=== PATIENT | male | born 1985 | race Caucasian/White ===

== ENCOUNTER 2021-03-02 14:01 | Outpatient (CLI) | payer SELFPAY ==
--- NOTE | 2021-03-02 15:41 | VDLE_ITS ---
Reason For Study: SWELLING Procedure LEFT This is a venous duplex using B-mode, color GSV is normal. flow and spectral Doppler. CFV is compressible, spontaneous, phasic, Exam performed in department. competent, and demonstrates normal Technically difficult due to atrophy of LE augmentation. vessels. FV is compressible, spontaneous, phasic, A preliminary report was called and/or faxed competent and demonstrates normal to DR JORDAN BALDERAS. augmentation. POP V is compressible, spontaneous, phasic, competent and demonstrates normal augmentation. T/P Trunk is compressible. PTV is compressible. LT PerV is compressible. VL/Venous Duplex US, Unilateral Interpretation Summary Deep veins of the left lower extremity are patent and compressible segmentally. There is no evidence of left lower extremity deep vein thrombosis. Valvular competence appears intac t within the proximal deep venous system on the left . The left great saphenous vein appears patent a nd compressible segmentally. Ordering Physician: Jordan Balderas Referring Physician: Jordan Balderas Performed By: Maia Rahman, RDCS, RVT
== END 2021-03-02 23:59 | disposition short-term general hospital (02) ==
PROVIDERS: PCP Physician Assistant; Referring Provider Physician Assistant; Visit Provider Physician Assistant
DX: R22.42 Localized swelling, mass and lump, left lower limb (principal)
CPT/HCPCS: 93971

== ENCOUNTER 2023-06-11 23:25 | Inpatient (IN) | payer OTHER, SELFPAY ==
[2023-06-11 23:26] VITALS: BP 109/67; PULSE 120; RESP 16; TEMP 37.7
[2023-06-11 23:34] VITALS: BP 109/67; PULSE 120; RESP 18; TEMP 37.7
[2023-06-11 23:37] VITALS: BMI 17.8
[2023-06-12] VITALS (18 sets, daily range): BP systolic 89–119; BP diastolic 49–82; PULSE 95–125; RESP 15–18; TEMP 36.5–39.6; O2SAT 95–100; BMI 16.6
--- NOTE | 2023-06-12 00:29 | CT_ITS ---
EXAM: CT ABDOMEN AND PELVIS WITHOUT INTRAVENOUS CONTRAST CLINICAL INDICATION: flank pain flank pain TECHNIQUE: Helically acquired images were obtained of the abdomen and pelvis without intravenous contrast. This CT exam was performed using one or more of the following dose reduction techniques: automated exposure control, adjustment of the mA and/or kV according to patient size, and/or use of iterative reconstruction technique. RADIATION DOSE: CTDIvol = 6.04 mGy, DLP = 320.15 mGy-cm COMPARISON: No relevant prior studies available. FINDINGS: LOWER THORAX: As seen on axial image 34, there is a 4.5 mm solid left lower lobe lung nodule. Fleischner Society Guidelines suggest no follow-up is necessary for patients with a low or high risk of malignancy. No cardiomegaly. No significant pericardial effusion. ABDOMEN: LIVER: Unremarkable. Homogeneous. GALLBLADDER AND BILE DUCTS: Unremarkable. No calcified gallstones. No gallbladder distention or wall edema. No intra- or extrahepatic biliary ductal dilation. PANCREAS: Unremarkable. No focal cystic mass. SPLEEN: The spleen is mildly enlarged. ADRENALS: Unremarkable. No nodules. KIDNEYS AND URETERS: There is mild hydronephrosis of the right kidney and there is right hydroureter. There is no demonstrated urinary calculus. There are multiple hypodense space occupying lesions in the peripheral cortex of the left kidney, with attenuation of greater than 90 HU. These are likely represent hyperdense cysts. No further evaluation is necessary. Normal renal size and position. STOMACH AND BOWEL: There is a small broad-based right inguinal hernia which contains small bowel. There is a small broad-based left inguinal hernia which contains a segment of sigmoid colon. There is no associated bowel obstruction or strangulation. No focal inflammatory change. PELVIS: APPENDIX: The appendix is not identified. There is no visible evidence for acute appendicitis. BLADDER: Urinary bladder contained 560 mL at the time of this exam. REPRODUCTIVE: Unremarkable as visualized. No mass. ABDOMEN and PELVIS: INTRAPERITONEAL SPACE: Unremarkable. No ascites or other fluid collection. No free air. BONES/JOINTS: There are postsurgical changes in the upper lumbar spine and visualized lower thoracic spine. There is deformity of the right femoral head, consistent with an old healed fracture and/or prior avascular necrosis. 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 There are calcifications surrounding the right hip joint which probably represent synovial osteochondromas. No suspicious lytic or blastic abnormality. SOFT TISSUES: See above. VASCULATURE: Unremarkable. Abdominal aorta is non-dilated. LYMPH NODES: Unremarkable. No enlarged lymph nodes. CT/Abdomen/Pelvis without Cont IMPRESSION: 1. Mild hydronephrosis of the right kidney and right hydroureter without demonstrated urinary calculus. Potential etiologies for this finding would include recent passage of a right ureteral calculus, pyelonephritis, vesicoureteral reflux, or distal right ureteral obstruction of indeterminate etiology. 2. Small bilateral inguinal hernias containing bowel. No associated bowel obstruction or strangulation. 3. Mild splenomegaly. 4. Chronic orthopedic abnormalities. Electronically Signed: Flex Barraza MD at 2:41 EDT Reading Location ID and State: [facility] / [place] , Service support ,
--- NOTE | 2023-06-12 00:43 | EDS_ITS ---
HPI History of Present Illness Chief Complaint: Flank Pain Informant: patient and spouse/S.O. 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 Self caths. Reports fever for the past week this evening Tmax 106 Temp oral been using Tylenol last dose 10 PM less than 3 hours ago. She has had UTI in the past managed at home. No cough. Vomiting x 1 today. No current nausea. States feels swelling in his right flank region. PFSH PFSH Medical History (Updated 06/12/23 @ 07:[address] Tonny Washington DO) Paralysis Home Medications NK 06/12/23 [History Last Taken Unknown] Allergy/AdvReac Type Severity Reaction Status Date / Time No Known Allergies Allergy Verified 06/11/23 23:26 Family History (Updated 06/12/23 @ 03:[address] Bola Hill MD) Other Heart disease Surgical History (Updated 06/12/23 @ 03:[address] Bola Hill MD) Status post spinal surgery Social History Smoking Status: Never smoker ROS ROS ED Constitutional Constitutional ED: Reports fever(s); Denies chills or sweats Eyes Eyes: Denies change in vision ENT ENT ED: Denies dysphagia or sore throat Cardiovascular Cardiovascular: Denies chest pain, leg edema, palpitations or racing heartbeat Respiratory/Chest Respiratory/Chest: Denies cough, dyspnea or dyspnea on exertion Gastrointestinal Gastrointestinal: Reports vomiting; Denies abdominal pain, diarrhea or nausea Genitourinary Genitourinary ED: Denies dysuria, hematuria or urinary frequency Musculoskeletal Musculoskeletal: Reports back pain; Denies extremity pain or neck pain Integumentary Denies rash or wounds Neurologic Neurologic: Denies headache(s), paresthesias or weakness EXAM Physical Exam Const Vital Signs: 06/11/23 23:34 06/11/23 23:26 06/12/23 00:07 Temperature 99.9 F H 99.9 F H 99.4 F H Temperature Source Oral Temporal Oral Pulse Rate 120 H 120 H 105 H Respiratory Rate 18 16 18 Blood Pressure 109/67 109/67 104/67 Blood Pressure Mean 81 81 79 Pulse Ox 98 Oxygen Delivery Method Room Air 06/12/23 02:00 06/12/23 03:00 Temperature 98.8 F 99.5 F H Temperature Source Temporal Temporal Pulse Rate 112 H 117 H Respiratory Rate 18 18 Blood Pressure 110/63 119/82 H Blood Pressure Mean 78 94 Pulse Ox 99 99 Oxygen Delivery Method Room Air Room Air Positive well nourished and well developed General Appearance ED: well developed and NAD HEENT Reports moist mucous membranes normocephalic and atraumatic Eyes PERRL, EOMs intact bilaterally and conjunctivae normal General Eye ED: Yes normal appearance of both eyes Neck no lymphadenopathy and supple General: Negative for tenderness Chest Wall Chest: Negative for tenderness Resp normal respiratory effort and normal air movement Effort and Inspection: symmetric chest movement; Negative for respiratory distress Cardio regular rhythm and no murmurs Rate: tachycardic Peripheral Pulses: pulses 2+ throughout GI normal to inspection, nondistended, normoactive bowel sounds and non-tender Palpation: Negative for guarding or rebound tenderness present Back/Spine no CVA tenderness and no thoracic nor lumbar tenderness Back/Spine Narrative: No rash in the flank region. Extremity Extremity Narrative: No movement of lower extremities: Pulses are intact distally. General Extremety ED: Negative for edema or tenderness General Extremity: Negative for edema Neuro oriented x3 and no sensory deficits noted Sensorium / Orientation: awake and alert Skin no rashes or lesions noted and no wounds MDM MDM MDM Narrative Medical decision making narrative: Interventions / MDM: Differential diagnosis: Urinary tract infection, fever Diagnosis considered but do not suspect: Kidney stone however CT negative. My EKG interpretation: N/A Imaging independently reviewed and interpreted by myself: CT scan abdomen pelvis: Right-sided hydronephrosis, no stone noted. Distended bladder. External documents reviewed: N/A Test considered but not ordered:N/A ED course: Temp 99.9 on arrival pulse 120 on arrival. He is nontoxic. Patient self cath with able to give a specimen from cath in the room. Sepsis labs were ordered, flank CT ordered due to reported right flank swelling. 0255: White count returned at 14 and normal kidney function lactate is 1.1. Urine having leukocytes and white cells however not significant culture pending. COVID, flu, RSV negative. Self cath therefore high risk for infection. Concerns for complicated UTI. Rocephin IV started. CT scan notes right-sided hydronephrosis with no obstructive stone. Distended bladder. He will self cath at this point. He has had fever for the past week that is worsened, complicated UTI. Will discuss with hospitalist service for admission. I discussed with hospitalist, Dr. Hill for admission. Re-evaluation: stable Disposition discussed with patient/family/significant other: Patient and significant other Case discussed with consulting clinician: Hospitalist This note was generated with [employer] dictation software. It may contain incorrect words, spelling, and punctuation that were not noted in checking the note before signing. Lab Data Attestation: I reviewed the patient's lab results. Labs: Laboratory Results - last 24 hr 06/12/23 06/12/23 00:50 01:18 WBC 14.6 H RBC 4.34 L Hgb 12.7 L Hct 36.9 L MCV 85.0 MCH 29.3 MCHC 34.4 RDW Std Deviation 36.8 RDW Coeff of Danni 11.9 Plt Count 153 MPV 8.5 Immature Gran % (Auto) 0.900 Neut % (Auto) 85.9 H Lymph % (Auto) 3.3 L [place] % (Auto) 9.1 Eos % (Auto) 0.3 Baso % (Auto) 0.5 Absolute Neuts (auto) 12.5 H Absolute Lymphs (auto) 0.48 L Nucleated RBC % 0 PT Cancelled INR Cancelled APTT Cancelled Sodium 132 L Potassium 3.5 Chloride 100 Carbon Dioxide 27.0 Anion Gap 5 BUN 10 Creatinine 0.80 Estim Creat Clear Calc 105.54 Est GFR (MDRD) Af Amer 139 Est GFR (MDRD) Non-Af 115 BUN/Creatinine Ratio 12.5 Glucose 156 H Lactic Acid 1.1 Calcium 10.6 H Total Bilirubin 0.80 AST 14 L ALT 21 Alkaline Phosphatase 72 Total Protein 7.0 Albumin 3.3 Globulin 3.7 Albumin/Globulin Ratio 0.9 Urine Color Yellow Urine Clarity Clear Urine pH 6.5 Ur Specific [place] 1.010 Urine Protein 15 H Urine Glucose (UA) Normal Urine Ketones 5 H Urine Occult Blood 10 H Urine Nitrite Negative Urine Bilirubin Negative Urine Urobilinogen Normal Ur Leukocyte Esterase 100 H Urine RBC 5-10 SEEN Urine WBC 10-25 SEEN Ur Squamous Epith Cells 5-10 SEEN Urine Bacteria 0 SEEN Urine Mucus 0 SEEN Radiography Diagnostic Testing: Clinical Impression(s) from Imaging Studies Abdomen/Pelvis CT 06/12/23 00:29 IMPRESSION: 1. Mild hydronephrosis of the right kidney and right hydroureter without demonstrated urinary calculus. Potential etiologies for this finding would include recent passage of a right ureteral calculus, pyelonephritis, vesicoureteral reflux, or distal right ureteral obstruction of indeterminate etiology. 2. Small bilateral inguinal hernias containing bowel. No associated bowel obstruction or strangulation. 3. Mild splenomegaly. 4. Chronic orthopedic abnormalities. Electronically Signed: Flex Barraza MD at 2:41 EDT Reading Location ID and State: [facility] / [place] , Service support , Discharge Plan Dx/Rx/DC Orders Clinical Impression: Fever, Chronic paraplegia, Complicated UTI (urinary tract infection) Disposition Disposition: Acute Care Hospital [facility] Discharge Date/Time: 06/12/23 04:15
[2023-06-12 01:13] LABS: Absolute Lymphocyte Count 0.48 X10^3/uL (0.83-4.51); Absolute Neutrophil Count 12.5 X10^3/uL (2.0-7.7); Basophil# 0.07 X10^3/uL; Basophil% 0.5 % (0-1); Eosinophil# 0.04 X10^3/uL; Eosinophils% 0.3 % (0-5); Hematocrit 36.9 % (40-54); Hemoglobin 12.7 g/dL (13.0-16.5); Lymphocyte # 0.48 X10^3/ul (0.83-4.51); Lymphocyte % 3.3 % (19-41); Mean Corp Hgb Conc 34.4 g/dL (32-36); Mean Corpuscular Hgb 29.3 pg (27.0-32.0); Mean Platelet Vol. 8.5 fl (6.2-12.0); Monocyte# 1.33 X10^3/uL; Monocyte% 9.1 % (0-10); NRBC Flagged by Analyzer 0 % (0-5); Neutrophil # 12.53 X10^3/uL (2.7-7.7); Neutrophil % 85.9 % (47-70); POSITIVE DIFFERENTIAL YES; Platelet Count 153 K/mm3 (150-450); RBC Distribution Width CV 11.9 % (11.6-14.6); RBC Distribution Width SD 36.8 fl (35.1-43.9); Red Blood Count 4.34 M/mm3 (4.6-6.2); White Blood Count 14.6 K/mm3 (4.4-11.0)
[2023-06-12] MEDS: 0.9% Normal Saline (500mL Bag) 500 ML 1000 ML IV (01:22)
[2023-06-12 01:29] LABS: Bacteria 0 SEEN /hpf (None Seen); Mucous, Urine 0 SEEN /hpf (<or=2+)
[2023-06-12 01:40] LABS: ALB/GLOB Ratio 0.9 RATIO (0.9-2.4); AST(SGOT) 14 U/L (15-37); Alanine Aminotransfer ALT/SGPT 21 U/L (16-61); Albumin, Serum 3.3 g/dL (3.2-5.0); Alkaline Phosphatase 72 U/L (45-117); Anion Gap 5 (5-15); BUN 10 mg/dL (7-18); BUN/Creat Ratio 12.5 RATIO (10-20); Calcium,Total 10.6 mg/dL (8.5-10.1); Chloride 100 mmol/L (98-107); EST Glomerular Filtration Rate 115 mL/min (>60); Est Glom Filt Rate - Afr Amer 139 mL/min (>60); Estimated Creatinine Clearance 105.54 ml/min; Globulin 3.7 g/dL (2.2-4.2); Glucose 156 mg/dL (74-106); Potassium 3.5 mmol/L (3.5-5.1); Sodium Level 132 mmol/L (136-145)
[2023-06-12 01:41] LABS: Lactic Acid 1.1 mmol/L (0.4-1.9)
[2023-06-12 01:55] LABS: Color, Urine Yellow (Yellow); Glucose, Dipstick Normal (Normal); Ketone-Dipstick 5 mg/dl (Negative); Leukocyte Esterase-Dipstick 100 /ul (Negative); Nitrite-Dipstick Negative (Negative); Occult Blood-Urine 10 /ul (Negative); Protein-Dipstick 15 mg/dl (Negative); Urine Bilirubin Dipstick Negative (Negative); Urine Clarity Clear (Clear); Urine Urobilinogen Normal (Normal); Urine pH 6.5 (5.0 - 8.0)
[2023-06-12 02:09] LABS: Red Blood Cells-Urine 5-10 SEEN /hpf (0-5); Squamous Epithelial Cells - UA 5-10 SEEN /hpf (0-5); White Blood Cells 10-25 SEEN /hpf (0-5)
[2023-06-12] MEDS: Ceftriaxone 1 GM/50 ML BAG IV (03:24)
[2023-06-12] MEDS: Ondansetron 4 MG/2 ML Vial IV ×2 (03:31→13:50)
--- NOTE | 2023-06-12 03:36 | PCM.HP.STD ---
HPI - General General Date of Admission: 06/12/23 HPI Narrative JO ANN OCAMPO, is a 37 M who presents to the hospital with flank pain and fever for the last week. He has a history of being a paraplegic from a horse accident at the age of 15 where he crushed his T10-T12 vertebra. Because of this he straight caths several times a day. CT of his abdomen in the ER demonstrates right hydronephrosis but no obvious stone. I discussed with him that we do not have any urology coverage as we can but he would prefer to stay. Based on his leukocytosis as well as his tachycardia he is septic by SIRS criteria. And he received a dose of Rocephin in the ER as well as IV fluids. [facility] Medical History (Updated 06/12/23 @ 03:[address] Bola Hill MD) Paralysis Home Medications NK 06/12/23 [History Last Taken Unknown] Allergy/AdvReac Type Severity Reaction Status Date / Time No Known Allergies Allergy Verified 06/11/23 23:26 Family History (Updated 06/12/23 @ 03:[address] Bola Hill MD) Other Heart disease Surgical History (Updated 06/12/23 @ 03:[address] Bola Hill MD) Status post spinal surgery Social History Smoking Status: Never smoker ROS Constitutional Constitutional: Reports chills and fever(s); Denies fatigue or malaise Eyes Eyes: Denies blurry vision ENT HEENT: Denies headache(s) or nasal discharge Cardiovascular Cardiovascular: Denies chest pain, dyspnea on exertion or syncope Respiratory/Chest Respiratory/Chest: Denies cough, shortness of breath at rest or shortness of breath with exertion Gastrointestinal Gastrointestinal: Reports abdominal pain, nausea and vomiting; Denies constipation or diarrhea Genitourinary Genitourinary: Denies dysuria Neurologic Neurologic: Denies focal weakness, numbness or tremor(s) Psychiatric Psychiatric: Denies anxiety or depression Vital Signs Vital Signs Vital Signs: 06/11/23 23:34 06/11/23 23:26 06/12/23 00:07 Temperature 99.9 F H 99.9 F H 99.4 F H Temperature Source Oral Temporal Oral Pulse Rate 120 H 120 H 105 H Respiratory Rate 18 16 18 Blood Pressure 109/67 109/67 104/67 Blood Pressure Mean 81 81 79 Pulse Ox 98 Oxygen Delivery Method Room Air 06/12/23 02:00 06/12/23 03:00 06/12/23 03:33 Temperature 98.8 F 99.5 F H 99.5 F H Temperature Source Temporal Temporal Pulse Rate 112 H 117 H 123 H Respiratory Rate 18 18 18 Blood Pressure 110/63 119/82 H 119/82 H Blood Pressure Mean 78 94 94 Pulse Ox 99 99 98 Oxygen Delivery Method Room Air Room Air Weight Weight: 131 lb 6.328 oz Body Mass Index (BMI) 17.8 Physical Exam Narrative General: Alert, Oriented x3, Cooperative, No apparent distress HEENT: Atraumatic, PERRLA, EOMI, Normocephalic Oral: Moist Mucosa Neck: Supple, No JVD Lungs: Tachycardic, Normal air movement, No rhonchi, No wheeze, No rales Cardiovascular: Tachycardic, Regular Rhythm, Normal S1, Normal S2, No murmurs Abdomen: Soft, Non Tender, Non-Distended, No Hepato-splenomegaly Extremities: No edema, Capillary Refill Less than 3 Seconds Skin: No rashes, No breakdown Musculoskeletal: No Tenderness to Palpation of Joints or Extremities Neurological: No focal neurological deficits, Motor Exam 5/5 strength throughout, Sensory exam intact to light touch and pain Psych/Mental Status: Normal Affect, Appropriate Results Lab / Micro Data 06/12/23 00:50 06/12/23 00:50 Labs: Laboratory Results - last 24 hr 06/12/23 00:50: WBC 14.6 H, RBC 4.34 L, Hgb 12.7 L, Hct 36.9 L, MCV 85.0, MCH 29.3, MCHC 34.4, RDW Std Deviation 36.8, RDW Coeff of Danni 11.9, Plt Count 153, MPV 8.5, Immature Gran % (Auto) 0.900, Neut % (Auto) 85.9 H, Lymph % (Auto) 3.3 L, [place] % (Auto) 9.1, Eos % (Auto) 0.3, Baso % (Auto) 0.5, Absolute Neuts (auto) 12.5 H, Absolute Lymphs (auto) 0.48 L, Nucleated RBC % 0, Sodium 132 L, Potassium 3.5, Chloride 100, Carbon Dioxide 27.0, Anion Gap 5, BUN 10, Creatinine 0.80, Estim Creat Clear Calc 105.54, Est GFR (MDRD) Af Amer 139, Est GFR (MDRD) Non-Af 115, BUN/Creatinine Ratio 12.5, Glucose 156 H, Lactic Acid 1.1, Calcium 10.6 H, Total Bilirubin 0.80, AST 14 L, ALT 21, Alkaline Phosphatase 72, Total Protein 7.0, Albumin 3.3, Globulin 3.7, Albumin/Globulin Ratio 0.9 06/12/23 01:18: Urine Color Yellow, Urine Clarity Clear, Urine pH 6.5, Ur Specific [place] 1.010, Urine Protein 15 H, Urine Glucose (UA) Normal, Urine Ketones 5 H, Urine Occult Blood 10 H, Urine Nitrite Negative, Urine Bilirubin Negative, Urine Urobilinogen Normal, Ur Leukocyte Esterase 100 H, Urine RBC 5-10 SEEN, Urine WBC 10-25 SEEN, Ur Squamous Epith Cells 5-10 SEEN, Urine Bacteria 0 SEEN, Urine Mucus 0 SEEN Micro: Microbiology 06/12/23 01:23 Mucosa - Nose SARS-CoV-2, Influenza & RSV (PCR) - Final Imaging Radiology Impression Abdomen/Pelvis CT 06/12/23 00:29 IMPRESSION: 1. Mild hydronephrosis of the right kidney and right hydroureter without demonstrated urinary calculus. Potential etiologies for this finding would include recent passage of a right ureteral calculus, pyelonephritis, vesicoureteral reflux, or distal right ureteral obstruction of indeterminate etiology. 2. Small bilateral inguinal hernias containing bowel. No associated bowel obstruction or strangulation. 3. Mild splenomegaly. 4. Chronic orthopedic abnormalities. Electronically Signed: Flex Barraza MD at 2:41 EDT , Assessment & Plan Assessment/Plan (1) Sepsis: (2) UTI (urinary tract infection): PLAN: Plan 1. Sepsis secondary to UTI in the setting of having to straight cath for paraplegia ? Continue with IV fluids ? Continue with Rocephin ? Blood and urine cultures are pending ? Will place [place] since he has to straight cath after his paraplegia ? Continue with Tylenol given his continued fevers ? Urology should be available on Tuesday for consult if necessary, it was offered him to be transferred to another institution which he declined ? Given his sepsis will complete sepsis fluids DVT: Lovenox 76 minutes was spent on direct patient care, including documentation as well as chart review and collaboration with colleagues Charges/Coding Visit Charges Inpatient E&M: 44398 Init Hosp L3
[2023-06-12] MEDS: 0.9% Normal Saline (1000mL) 1,000 ML 100 ML IV (05:11)
[2023-06-12] MEDS: Acetaminophen 325 MG Tablet 650 MG PO ×3 (05:40→18:10)
[2023-06-12] MEDS: 0.9% Normal Saline (1000mL) 1,000 ML 999 ML IV ×4 (05:45→12:58)
[2023-06-12 06:48] LABS: Absolute Lymphocyte Count 0.48 X10^3/uL (0.83-4.51); Absolute Neutrophil Count 9.4 X10^3/uL (2.0-7.7); Basophil# 0.03 X10^3/uL; Basophil% 0.3 % (0-1); Hematocrit 32.2 % (40-54); Hemoglobin 11.1 g/dL (13.0-16.5); Lymphocyte # 0.48 X10^3/ul (0.83-4.51); Lymphocyte % 4.3 % (19-41); Mean Corp Hgb Conc 34.5 g/dL (32-36); Mean Corpuscular Hgb 29.5 pg (27.0-32.0); Mean Corpuscular Volume 85.6 fL (80-94); Mean Platelet Vol. 8.7 fl (6.2-12.0); Monocyte% 10.7 % (0-10); NRBC Flagged by Analyzer 0 % (0-5); Neutrophil # 9.42 X10^3/uL (2.7-7.7); Neutrophil % 83.9 % (47-70); POSITIVE DIFFERENTIAL YES; Platelet Count 140 K/mm3 (150-450); RBC Distribution Width SD 37.4 fl (35.1-43.9); Red Blood Count 3.76 M/mm3 (4.6-6.2); White Blood Count 11.2 K/mm3 (4.4-11.0)
[2023-06-12 07:04] LABS: Anion Gap 5 (5-15); BUN 9 mg/dL (7-18); BUN/Creat Ratio 12.8 RATIO (10-20); Calcium,Total 9.6 mg/dL (8.5-10.1); Chloride 104 mmol/L (98-107); EST Glomerular Filtration Rate 133 mL/min (>60); Est Glom Filt Rate - Afr Amer 160 mL/min (>60); Estimated Creatinine Clearance 112.73 ml/min; Glucose 132 mg/dL (74-106); Potassium 3.6 mmol/L (3.5-5.1); Sodium Level 134 mmol/L (136-145)
[2023-06-12] MEDS: Enoxaparin 40 MG/0.4 ML Syringe SC (07:56)
--- NOTE | 2023-06-12 14:24 | PCM.HOSP.N ---
Hospitalist Note Patient was seen and examined today, I talked with his who was in the room at the time of my exam. Patient spiked a temperature this afternoon on 103, I have decided to broaden his antibiotic coverage and I stopped his Rocephin and placed him on Zosyn. Patient's IV fluid was bumped up slightly and he was given some fluid boluses today. Urine and blood cultures are pending at this time, labs will be obtained tomorrow morning
[2023-06-12] MEDS: Piperacil/Tazobactam 3.375 GM in 0.9% Normal Saline (50mL MB+) 50 ML IV ×2 (15:50→22:02)
[2023-06-12] MEDS: 0.9% Normal Saline (1000mL) 1,000 ML 125 ML IV ×2 (15:53→23:40)
[2023-06-13] MEDS: Acetaminophen 325 MG Tablet 650 MG PO ×3 (00:11→15:16)
[2023-06-13 00:54] VITALS: TEMP 37.2
[2023-06-13 04:33] VITALS: BP 104/61; PULSE 82; RESP 16; TEMP 36.8; O2SAT 99
[2023-06-13] MEDS: Piperacil/Tazobactam 3.375 GM in 0.9% Normal Saline (50mL MB+) 50 ML IV ×3 (04:37→21:45)
[2023-06-13] MEDS: 0.9% Normal Saline (1000mL) 1,000 ML 125 ML IV ×3 (06:36→23:01)
[2023-06-13 06:39] LABS: Absolute Lymphocyte Count 1.01 X10^3/uL (0.83-4.51); Basophil# 0.01 X10^3/uL; Basophil% 0.1 % (0-1); Eosinophil# 0.01 X10^3/uL; Eosinophils% 0.1 % (0-5); Hematocrit 30.3 % (40-54); Hemoglobin 10.3 g/dL (13.0-16.5); Lymphocyte # 1.01 X10^3/ul (0.83-4.51); Lymphocyte % 12.5 % (19-41); Mean Corpuscular Hgb 29.7 pg (27.0-32.0); Mean Corpuscular Volume 87.3 fL (80-94); Mean Platelet Vol. 8.9 fl (6.2-12.0); Monocyte# 1.03 X10^3/uL; Monocyte% 12.7 % (0-10); NRBC Flagged by Analyzer 0 % (0-5); Neutrophil # 6.01 X10^3/uL (2.7-7.7); Neutrophil % 74.2 % (47-70); Platelet Count 126 K/mm3 (150-450); RBC Distribution Width CV 12.6 % (11.6-14.6); RBC Distribution Width SD 40.3 fl (35.1-43.9); Red Blood Count 3.47 M/mm3 (4.6-6.2); White Blood Count 8.1 K/mm3 (4.4-11.0)
[2023-06-13 07:16] LABS: ALB/GLOB Ratio 0.8 RATIO (0.9-2.4); AST(SGOT) 17 U/L (15-37); Alanine Aminotransfer ALT/SGPT 21 U/L (16-61); Albumin, Serum 2.3 g/dL (3.2-5.0); Alkaline Phosphatase 55 U/L (45-117); Anion Gap 4 (5-15); BUN 6 mg/dL (7-18); BUN/Creat Ratio 9.5 RATIO (10-20); Calcium,Total 9.3 mg/dL (8.5-10.1); Chloride 113 mmol/L (98-107); Creatinine, Serum 0.63 mg/dL (0.70-1.30); EST Glomerular Filtration Rate 150 mL/min (>60); Est Glom Filt Rate - Afr Amer 182 mL/min (>60); Estimated Creatinine Clearance 125.25 ml/min; Glucose 98 mg/dL (74-106); Potassium 3.6 mmol/L (3.5-5.1); Protein, Total 5.3 g/dL (6.4-8.2); Sodium Level 140 mmol/L (136-145)
[2023-06-13 08:28] VITALS: BP 104/62; PULSE 75; RESP 18; TEMP 37; O2SAT 100
[2023-06-13] MEDS: Enoxaparin 40 MG/0.4 ML Syringe SC (10:11)
--- NOTE | 2023-06-13 13:02 | CASEMGMT ---
LUIS DEGAR Assessment Face to Face with patient for initial transition planning/care coordination assessment. LUIS EDGAR introduced self and role at [facility], pt voices understanding. Pt is A&Ox4 and is resting comfortably in bed and is calm. Pt at bedside. Care providers, pharmacy, and demographics verified. Admitting dx: Sepsis from UTI PCP: Jordan Beck Specialists: Denies Preferred Pharmacy: [facility] Insurance: [employer] Prescription Benefit: Denies LNOK: Fiordaliza Mannakiko (W) Living Arrangements: Pt lives with his in a single story home with a BM and 3 steps to enter with a HR. ADLs/IADLs: Pt is a paraplegic. Pt helps the pt. Transportation: Family and neighbors DME: Pt mainly uses a W/C. Pt states that when he is feeling strong and healthy that he is able to use crutches at times. Pt straight caths himself at home. Leg braces. Shower chair and GB. BP Cuff. Stethoscope. HHC/SNF: Denies history or needs Pt?s goal: Home with Plan: Pt denies the need for HHC, OP therapy, or SNF at this time. Pt states that he wishes to DC home with the help of his and states feeling safe doing so. CM to follow for safe DC from [facility]. Josselyn Zayas RN, CM
[2023-06-13 15:01] VITALS: BP 107/70; PULSE 107; RESP 20; TEMP 38.6; O2SAT 97
--- NOTE | 2023-06-13 16:02 | PCM.PN.HOSP ---
Reason for Visit Reason for Visit: Diagnoses Sepsis, unspecified organism (06/12/23) Urinary tract infection, site not specified (06/12/23) Subjective Subjective Patient was seen and examined today, he appears to look better today, his white count is normal, he is afebrile. Patient's urine culture did not grow out any organism, I have elected to obtain a chest x-ray to make sure the patient does not have a pneumonia. I talked with urology by phone today, they examined him his images of his CAT scan of his abdomen and pelvis, they felt that the changes of the right hydronephrosis was due to pyelonephritis or reflux, they did not feel was necessary to see the patient in the hospital, the patient could follow-up as an outpatient. Objective Data Objective Data Vital Signs: Vital Signs Temp Pulse Resp BP Pulse Ox O2 Del Method 101.4 F H 107 H 20 H 107/70 97 Room Air 06/13/23 15:01 06/13/23 15:01 06/13/23 15:01 06/13/23 15:01 06/13/23 15:01 06/13/23 15:01 Oxygen Delivery Method Room Air Weight: 55.7 kg Body Mass Index (BMI) 16.6 Intake & Output: Intake and Output for Last 24 Hours 06/11/23 06/12/23 06/13/23 23:59 23:59 23:59 Intake Total 7250.42 / 7250.42 1966.67 / 1966.67 Output Total 1999 2150 / 2150 Balance 5250.42 / 5250.42 -183.33 / -183.33 Lab / Micro Data 06/13/23 06:09 06/13/23 06:09 Labs: Laboratory Results - last 24 hr 06/13/23 06:09: WBC 8.1, RBC 3.47 L, Hgb 10.3 L, Hct 30.3 L, MCV 87.3, MCH 29.7, MCHC 34.0, RDW Std Deviation 40.3, RDW Coeff of Danni 12.6, Plt Count 126 L, MPV 8.9, Immature Gran % (Auto) 0.400, Neut % (Auto) 74.2 H, Lymph % (Auto) 12.5 L, [place] % (Auto) 12.7 H, Eos % (Auto) 0.1, Baso % (Auto) 0.1, Absolute Neuts (auto) 6.0, Absolute Lymphs (auto) 1.01, Nucleated RBC % 0, Sodium 140, Potassium 3.6, Chloride 113 H, Carbon Dioxide 23.0, Anion Gap 4 L, BUN 6 L, Creatinine 0.63 L, Estim Creat Clear Calc 125.25, Est GFR (MDRD) Af Amer 182, Est GFR (MDRD) Non-Af 150, BUN/Creatinine Ratio 9.5 L, Glucose 98, Calcium 9.3, Total Bilirubin 0.30, AST 17, ALT 21, Alkaline Phosphatase 55, Total Protein 5.3 L, Albumin 2.3 L, Globulin 3.0, Albumin/Globulin Ratio 0.8 L Micro: Microbiology 06/12/23 01:18 Urine Catheter - Catheter Urine Culture - Preliminary Culture exhibits no growth. 06/12/23 01:23 Mucosa - Nose SARS-CoV-2, Influenza & RSV (PCR) - Final Physical Exam Const alert, oriented x3 and no apparent distress General Appearance: cooperative, well kempt and well developed Orientation / Consciousness: awake, oriented to person, oriented to place and oriented to time HEENT normocephalic, head/scalp atraumatic and moist oral mucous membranes Eyes PERRL, EOMs intact bilaterally and conjunctivae normal Neck supple, no JVD, thyroid normal and no carotid bruits General: trachea midline Resp normal respiratory effort, no retractions, no use of accessory muscles and clear to auscultation bilaterally Auscultation: Negative for rales, rhonchi or wheezes Cardio regular rate, regular rhythm, no murmurs, no rub and no gallops GI normal to inspection, nondistended, normoactive bowel sounds, soft to palpation, non-tender and non-distended Skin no rashes or lesions noted General Skin Exam: no breakdown Neuro CN's II-XII intact bilaterally Neuro Narrative: Patient is paraplegic Sensorium / Orientation: awake and alert Speech: speech normal Psych affect normal Assessment & Plan Assessment/Plan (1) UTI (urinary tract infection): PLAN: Plan 1. Right pyelonephritis-continue antibiotic coverage with Zosyn, await blood culture results, continue IV fluids at this time #2 mild right hydronephrosis-etiology is unclear at this point, patient can follow-up with urology as an outpatient #3 chronic paraplegia-complicates care, management, recovery, and prognosis Sepsis is ruled out at this time Total clinical time spent by myself addressing the patient's medical issues, reviewing all of his data, and collaborating with patient's care team: 35 minutes Charges/Coding Visit Charges Inpatient E&M: 61966 Subs Hosp L2
--- NOTE | 2023-06-13 16:45 | RAD_ITS ---
INDICATION: fever EXAMINATION/TECHNIQUE: X-RAY - XR Chest 1 View COMPARISON: FINDINGS: LINES/DEVICES: None. LUNGS: Focal opacity at the left costophrenic angle suggesting an infiltrate. No pneumothorax. MEDIASTINUM AND CARDIOVASCULAR STRUCTURES: Cardiac silhouette not enlarged. Central airways and mediastinal contour are unremarkable. BONES AND SOFT TISSUES: Mild upper thoracic scoliosis. Lower thoracic vertebral rods. RAD/Chest 1 View (Portable) IMPRESSION: Left basilar infiltrate at the costophrenic angle. Electronically Signed: Kd Arredondo DO at 17:16 EDT Reading Location ID and State: [facility] / [place] Tel [phone], Service support ,
[2023-06-13 18:21] VITALS: BP 103/61; PULSE 99; RESP 18; TEMP 37.6; O2SAT 99
[2023-06-13 21:33] VITALS: BP 113/68; PULSE 92; RESP 18; TEMP 36.9; O2SAT 100
[2023-06-14 00:45] VITALS: BP 112/72; PULSE 94; RESP 18; TEMP 37.4; O2SAT 98
[2023-06-14 05:21] VITALS: BP 110/64; PULSE 84; RESP 18; TEMP 37.1; O2SAT 98
[2023-06-14] MEDS: Piperacil/Tazobactam 3.375 GM in 0.9% Normal Saline (50mL MB+) 50 ML IV (05:30)
[2023-06-14] MEDS: 0.9% Normal Saline (1000mL) 1,000 ML 125 ML IV (05:32)
[2023-06-14 08:00] VITALS: BP 110/84; PULSE 80; RESP 18; TEMP 37.1; O2SAT 100
--- NOTE | 2023-06-14 11:54 | DCINST_ITS ---
Discharge Instructions Diet Discharge Diet: No restrictions Activity Discharge Activity: Return to Normal Activity Follow Up Care Test Results: Test results from this visit will be discussed in further detail at your follow- up appointment, if applicable. Discharge Plan Admission Admit Date/Time: 06/12/23 03:31 Primary Reason for Your Visit: urinary tract infection Attending Provider: Smooth Spencer Primary Care Provider: Jordan Beck Consulting Providers: [place] Discharge Orders/Prescriptions Prescriptions: New ciprofloxacin HCl [Cipro] 500 mg tablet 500 mg PO BID Qty: 14 0RF Referrals / Follow Up: Jordan Beck PA-C [Primary Care Provider] - Disposition Disposition (needs filled in before D/C Order can be placed): Home, Self Care
--- NOTE | 2023-06-14 12:01 | DS.PCM_ITS ---
Providers Date of Admission: 06/12/23 Date of Discharge: 06/14/23 Primary Care Physician: Jordan Beck PA-C Reason For Visit: SEPSIS FROM UTI Diagnosis Discharge Diagnosis (1) UTI (urinary tract infection): Status: Acute Code(s): N39.0 - Urinary tract infection, site not specified Plan 1. Right pyelonephritis due to E. coli and chronic vqqx-rzporzanqspuzrd-ayfmuxjm antibiotic coverage with Zosyn, await blood culture results, continue IV fluids at this time #2 mild right hydronephrosis-etiology is unclear at this point, patient can follow-up with urology as an outpatient #3 chronic paraplegia-complicates care, management, recovery, and prognosis Sepsis is ruled out at this time Total clinical time spent by myself addressing the patient's medical issues, reviewing all of his data, and collaborating with patient's care team: 35 minutes Medications at Discharge Home Medications ciprofloxacin HCl 500 mg tablet (Cipro) 500 mg PO BID #14 tabs 06/14/23 Hospital Course Operations None Procedures None Summary of Care Provided Minutes Spent on Discharge: 31 Hospital Course: This 37-year-old white male was seen in the emergency room at [facility] with a chief complaint of right flank pain along with fever. Patient is paraplegic and self caths himself for urination. Workup in the emergency room included a CT scan which demonstrated some mild right hydronephrosis but no stones, patient's white blood cell count was elevated at 14.6, hemoglobin was 12.7, patient's urinalysis showed leukocyte Estrace, 5-10 RBCs, 10-25 WBCs but 0 bacteria. Patient had a urine sample obtained by his PCP prior to coming into the emergency room but the results were not available. Patient was admitted for right pyelonephritis, he was given Zosyn and IV fluids, I informally talked with urology about his CT results (Dr. Villa) he said that he felt that some of the hydronephrosis could be due to pyelonephritis and that he would be glad to see the patient as an outpatient but he did not feel he needed to see the patient emergently. Patient did well during his hospital stay. On 06/14/2023, patient was seen and examined: On examination he appeared in good health and spirits. Vital signs as documented. Skin warm and dry and without overt rashes. Neck without JVD, neck was supple, trachea midline, thyroid was normal. Lungs clear bilaterally, normal air movement was noted. Heart exam notable for regular rhythm, normal sounds and absence of murmurs, rubs or gallops. Abdomen unremarkable and without evidence of organomegaly, masses, or abdominal aortic enlargement. Bowel sounds are present, abdomen is not distended. Extremities nonedematous, no cyanosis was noted, no clubbing was noted. Neuro: Cranial nerves II through XII are grossly intact, patient is paraplegic Psych: Patient is alert and oriented x3, he does not appear anxious or depressed, he does not appear agitated. Patient was discharged home on 06/14/2023 in stable condition. As a further note, approximately 2 days later I got a call from the patient's PCPs office and his outpatient urine culture grew out E. coli which was pansensitive to many antibiotics including Cipro. Weight / BMI Weight Weight: 55.7 kg Body Mass Index (BMI) 16.6 ABG / Lab / Microbiology Data 06/13/23 06:09 06/13/23 06:09 Microbiology: Microbiology 06/12/23 01:18 Urine Catheter - Catheter Urine Culture - Final Culture exhibits no growth. 06/12/23 01:23 Mucosa - Nose SARS-CoV-2, Influenza & RSV (PCR) - Final Radiography Diagnostic Testing: Radiology Impression Chest X-Ray 06/13/23 16:45 IMPRESSION: Left basilar infiltrate at the costophrenic angle. Electronically Signed: Kd Arredondo DO at 17:16 EDT Reading Location ID and State: [address] [place] [address] Tel [phone], Service support , D/C Instructions Discharge Diet: No restrictions Meaningful Use Info Meaningful Use Meaningful Use Diagnoses (Choose all that apply): None applicable Ischemic Stroke Statin Dosing Therapy Reference: STATIN DOSE THERAPY REFERENCE: * Patients > 75 years receive moderate or high dose statin therapy. * Patients 75 years or YOUNGER should receive HIGH intensity statin dose unless contraindicated. You will be required to document reason for non-treatment if statin daily dose does not meet guidelines. HIGH DOSE STATIN THERAPY DAILY Atorvastatin > than or = to 40 mg Rosuvastatin > than or = to 20 mg Amlodipine + Atorvastatin > than or = to 2.5/40 mg Ezetimibe + Simvastatin 10/80 mg Simvastatin 80mg Discharge Plan Admission Admit Date/Time: 06/12/23 03:31 Primary Reason for Your Visit: urinary tract infection Attending Provider: Smooth Spencer Primary Care Provider: Jordan Beck Consulting Providers: [place] Discharge Orders/Prescriptions Prescriptions: New ciprofloxacin HCl [Cipro] 500 mg tablet 500 mg PO BID Qty: 14 0RF Referrals / Follow Up: Jordan Beck PA-C [Primary Care Provider] - Disposition Disposition (needs filled in before D/C Order can be placed): Home, Self Care Charges/Coding Visit Charges Inpatient E&M: 09849 Disch Hosp >30min
[2023-06-14 13:13] VITALS: BP 121/79; PULSE 90; RESP 18; TEMP 36.7; O2SAT 100
--- NOTE | 2023-06-14 13:40 | PHA.DC_ITS ---
Pharmacy [facility] has performed discharge medication reconciliation and counseling for this patient. The patient's discharge medication list was reviewed for discrepancies and discrepancies were resolved. The patient was counseled on the following discharge medications and changes in medications for homegoing were reviewed. The Reason for Use, instructions for use, and potential side effects were reviewed for all new medications. The patient's questions regarding all of their medications were answered. 1. Ciprofloxacin 500 mg PO BID x 7 days The patient was able to verbally demonstrate an understanding of their discharge medications. Medications at Discharge Home Medications ciprofloxacin HCl 500 mg tablet (Cipro) 500 mg PO BID #14 tabs 06/14/23
== END 2023-06-14 14:45 | disposition home or self-care (01) | DRG 690 ==
LOC: ED 06-12 01:06 → MS3 06-12 03:47
PROVIDERS: Admitting Provider Family Medicine; Emergency Provider Emergency Medicine; PCP Physician Assistant; Visit Provider Internal Medicine
DX: N13.6 Pyonephrosis (principal); G82.20 Paraplegia, unspecified; N12 Tubulo-interstitial nephritis, not specified as acute or chronic; B96.20 Unspecified Escherichia coli [E. coli] as the cause of diseases classified elsewhere
CPT/HCPCS: 36415; 71045; 74176; 80048; 80053; 81001; 83605; 85025; 85610; 87040; 87086; 87631; 99284; J7030; J7040; J7050; A4216; J2405